=== PATIENT | male | born 1960 | race Caucasian/White ===

== ENCOUNTER 2016-12-06 19:17 | Inpatient (IN) | payer OTHER ==
[~2016-12-06] VITALS: Ht 177.8 cm; Wt 104.1 kg
[~2016-12-06 19:17] MED LIST: AMLO10TA2 PO; ASPI-630 PO; ATOR10TA60 PO; ATOR20TA PO; HYDR-2758 PO; LINE600T PO; MULT-245 PO; MULT-246 PO; OMEG1CAP27 PO; OMEG300C PO; OMEP20CA9 PO; PANT40TA3 PO; POTA20TA12 PO; POTA20TA82 PO; SILD50TA PO; VALS1TAB18 PO; VALS1TAB22 PO
[2016-12-06] MEDS ORDERED: KETOROLAC TROMETHAMINE 30 MG/ML INJ. IV ONE (21:30)
[2016-12-06 21:42] LABS: BASO # 0.1 x10^3/uL (0.0-0.2); BASO % 0 % (0-3); EOS % 0 % (0-3); HEMATOCRIT 44.8 % (39.0-53.0); HEMOGLOBIN 14.8 g/dL (13.0-17.5); LYMPH # 0.7 x10^3/uL (1.0-4.8); LYMPH % 4 % (24-48); MEAN CORPUSCULAR HEMOGLOBIN 30 pg (25-35); MEAN CORPUSCULAR HGB CONC 33 g/dL (31-37); MEAN CORPUSCULAR VOLUME 89 fL (79-100); MONO % 4 % (0-9); NEUT % 91 % (31-73); PLATELET COUNT 194 x10^3/uL (140-400); RED BLOOD COUNT 5.03 x10^6/uL (4.30-5.70); RED CELL DISTRIBUTION WIDTH 14.1 % (11.5-14.5); WHITE BLOOD COUNT 20.3 x10^3/uL (4.0-11.0)
[2016-12-06] MEDS ORDERED: VANCOMYCIN 1.5 GM in IV NORMAL SALINE 500ML BAG 500 ML IV ONE (21:45)
[2016-12-06 21:48] LABS: CALCIUM 8.8 mg/dL (8.5-10.1); CREATININE 1.1 mg/dL (0.7-1.3); GFR 69.5; POTASSIUM 3.1 mmol/L (3.5-5.1)
[2016-12-06 22:02] LABS: ALBUMIN 3.7 g/dL (3.4-5.0); ALBUMIN/GLOBULIN RATIO 0.9 (1.0-1.7); C-REACTIVE PROTEIN 110.9 mg/L (0-3.3); TOTAL BILIRUBIN 0.8 mg/dL (0.2-1.0); TOTAL PROTEIN 7.7 g/dL (6.4-8.2)
[2016-12-06 22:22] LABS: PLT ESTIMATE ADEQUATE (ADEQUATE)
[2016-12-06 23:15] VITALS: BP 127/69
[2016-12-06] MEDS: IV NORMAL SALINE 1000ML BAG 1,000 ML IV SCH (23:45)
[2016-12-06] MEDS ORDERED: ONDANSETRON PF 4 MG/2 ML VIAL. IV PRN (23:45)
[2016-12-06] MEDS ORDERED: MORPHINE SULFATE 4 MG/ML DISP.SYRIN. IV PRN (23:45)
--- NOTE | 2016-12-06 23:57 | PHYS DOC ---
Past Medical History Past Medical History: High Cholesterol, Hypertension, MRSA Past Surgical History: No Surgical History Alcohol Use: None Drug Use: None Adult General Chief Complaint Chief Complaint: FEVER HPI HPI Patient is a 56 year old male with history of recurrent cellulitis who presents with fever, myalgias, and chills starting earlier this morning with rash and right lower extremity developing later this afternoon. Patient is taken ibuprofen earlier today with limited improvement. Patient has had multiple hospital admissions the past 3 years for cellulitis. He is not diabetic. He denies any injury or trauma to the area. No history of DVT or PE. No other medical complaints. Review of Systems Review of Systems ROS as per HPI. Current Medications Current Medications Current Medications Medications (Trade) Dose Ordered Sig/Bridgette Start Time Stop Time Status Last Admin Dose Admin Ketorolac Tromethamine (Toradol) 30 mg 1X ONCE 12/06/16 21:30 12/06/16 21:31 DC 12/06/16 21:40 30 MG Allergies Allergies Allergies Coded Allergies Type Severity Reaction Last Updated Verified No Known Drug Allergies 10/10/15 No Physical Exam Physical Exam Constitutional: Well developed, well nourished, no acute distress, non-toxic appearance. [] HENT: Normocephalic, atraumatic, bilateral external ears normal, oropharynx moist, no oral exudates, nose normal. [] Eyes: PERRLA, EOMI, conjunctiva normal, no discharge. [] Neck: Normal range of motion, no tenderness, supple, no stridor. [] Cardiovascular: Tachycardic. [] Lungs & Thorax: Bilateral breath sounds clear to auscultation [] Abdomen: Bowel sounds normal, soft, no tenderness, no masses, no pulsatile masses. [] Skin: large patch cellulitis right anterior lower extremity, mild induration, no streaking, weeping her tissue sloughing.[] Back: No tenderness, no CVA tenderness. [] Extremities: No tenderness, no cyanosis, no clubbing, ROM intact, no edema. [] Neurologic: Alert and oriented X 3, normal motor function, normal sensory function, no focal deficits noted. [] Psychologic: Affect normal, judgement normal, mood normal. [] Current Patient Data Vital Signs Vital Signs Date Time Temp Pulse Resp B/P (MAP) Pulse Ox O2 Delivery O2 Flow Rate FiO2 8/29/17 19:35 100.4 87 18 132/72 (92) 95 Room Air 100.4 Lab Values Laboratory Tests Test 12/06/16 20:40 White Blood Count 20.3 x10^3/uL (4.0-11.0) H Red Blood Count 5.03 x10^6/uL (4.30-5.70) Hemoglobin 14.8 g/dL (13.0-17.5) Hematocrit 44.8 % (39.0-53.0) Mean Corpuscular Volume 89 fL (79-100) Mean Corpuscular Hemoglobin 30 pg (25-35) Mean Corpuscular Hemoglobin Concent 33 g/dL (31-37) Red Cell Distribution Width 14.1 % (11.5-14.5) Platelet Count 194 x10^3/uL (140-400) Neutrophils (%) (Auto) 91 % (31-73) H Lymphocytes (%) (Auto) 4 % (24-48) L Monocytes (%) (Auto) 4 % (0-9) Eosinophils (%) (Auto) 0 % (0-3) Basophils (%) (Auto) 0 % (0-3) Neutrophils # (Auto) 18.5 x10^3uL (1.8-7.7) H Lymphocytes # (Auto) 0.7 x10^3/uL (1.0-4.8) L Monocytes # (Auto) 0.9 x10^3/uL (0.0-1.1) Eosinophils # (Auto) 0.1 x10^3/uL (0.0-0.7) Basophils # (Auto) 0.1 x10^3/uL (0.0-0.2) Segmented Neutrophils % 83 % (35-66) H Band Neutrophils % 8 % (0-9) Lymphocytes % 5 % (24-48) L Monocytes % 4 % (0-10) Platelet Estimate Adequate (ADEQUATE) Sodium Level 137 mmol/L (136-145) Potassium Level 3.1 mmol/L (3.5-5.1) L Chloride Level 101 mmol/L (98-107) Carbon Dioxide Level 24 mmol/L (21-32) Anion Gap 12 (6-14) Blood Urea Nitrogen 16 mg/dL (8-26) Creatinine 1.1 mg/dL (0.7-1.3) Estimated GFR (Cockcroft-Gault) 69.5 BUN/Creatinine Ratio 15 (6-20) Glucose Level 110 mg/dL (70-99) H Lactic Acid Level 1.4 mmol/L (0.4-2.0) Calcium Level 8.8 mg/dL (8.5-10.1) Total Bilirubin 0.8 mg/dL (0.2-1.0) Aspartate Amino Transferase (AST) 23 U/L (15-37) Alanine Aminotransferase (ALT) 35 U/L (16-63) Alkaline Phosphatase 75 U/L (46-116) C-Reactive Protein, Quantitative 110.9 mg/L (0-3.3) H Total Protein 7.7 g/dL (6.4-8.2) Albumin 3.7 g/dL (3.4-5.0) Albumin/Globulin Ratio 0.9 (1.0-1.7) L Laboratory Tests 12/06/16 20:40 Laboratory Tests 12/06/16 20:40 EKG EKG [] Radiology/Procedures Radiology/Procedures [] Course & Med Decision Making Course & Med Decision Making Pertinent Labs and Imaging studies reviewed. (See chart for details) [IV fluids antibiotics given. Vital signs stable. Will admit patient to the hospitalist service.] Dragon Disclaimer Dragon Disclaimer This electronic medical record was generated, in whole or in part, using a voice recognition dictation system. Departure Departure Impression: Primary Impression: Cellulitis Disposition: ADMITTED INPATIENT Admitting Physician: Other Condition: STABLE (Dr. Steinberg) Referrals: JOSUE NIETO (PCP) [place] DO Dec 06, 2016 23:57
[2016-12-07 03:00] VITALS: BP 105/62
[2016-12-07 04:46] LABS: BASO # 0.1 x10^3/uL (0.0-0.2); BASO % 1 % (0-3); EOS % 0 % (0-3); HEMOGLOBIN 13.5 g/dL (13.0-17.5); LYMPH # 1.1 x10^3/uL (1.0-4.8); LYMPH % 8 % (24-48); MEAN CORPUSCULAR HEMOGLOBIN 30 pg (25-35); MEAN CORPUSCULAR HGB CONC 34 g/dL (31-37); MEAN CORPUSCULAR VOLUME 89 fL (79-100); MONO % 7 % (0-9); NEUT % 84 % (31-73); PLATELET COUNT 154 x10^3/uL (140-400); RED BLOOD COUNT 4.49 x10^6/uL (4.30-5.70); RED CELL DISTRIBUTION WIDTH 14.4 % (11.5-14.5); WHITE BLOOD COUNT 12.9 x10^3/uL (4.0-11.0)
[2016-12-07 05:01] LABS: CALCIUM 8.3 mg/dL (8.5-10.1); GFR 77.6
[2016-12-07 05:40] LABS: POTASSIUM 2.9 mmol/L (3.5-5.1)
[2016-12-07] MEDS ORDERED: POTASSIUM CHLORIDE 20 MEQ TABLET.ER. PO ONE ×2 (06:00→08:00)
[2016-12-07 07:43] VITALS: BP 118/64
[2016-12-07] MEDS ORDERED: ONDANSETRON PF 4 MG/2 ML VIAL. IV PRN (08:15)
[2016-12-07] MEDS ORDERED: MORPHINE SULFATE 2 MG/ML DISP.SYRIN. IV PRN (08:15)
[2016-12-07] MEDS ORDERED: ACETAMINOPHEN 325 MG TABLET. PO PRN (08:15)
[2016-12-07] MEDS ORDERED: hydrALAZINE 20 MG/ML VIAL. IVP PRN (08:15)
[2016-12-07] MEDS ORDERED: traMADol 50 MG TABLET PO PRN (08:15)
[2016-12-07] MEDS ORDERED: DOCUSATE SODIUM 100 MG CAPSULE. PO PRN (08:15)
[2016-12-07] MEDS ORDERED: TAMS0.4C2 PO (08:49)
[2016-12-07] MEDS: IV NORMAL SALINE 1000ML BAG 1,000 ML IV SCH ×2 (09:27→17:58)
[2016-12-07 10:48] VITALS: BP 118/71
--- NOTE | 2016-12-07 11:11 | PDOC ---
Infectious Disease Note Vital Sign Vital Signs Vital Signs Date Time Temp Pulse Resp B/P (MAP) Pulse Ox O2 Delivery O2 Flow Rate FiO2 12/07/16 10:48 98.1 70 19 118/71 (87) 94 Room Air 98.1 Labs Lab Laboratory Tests Test 12/06/16 20:40 12/07/16 04:00 White Blood Count 20.3 x10^3/uL (4.0-11.0) 12.9 x10^3/uL (4.0-11.0) Red Blood Count 5.03 x10^6/uL (4.30-5.70) 4.49 x10^6/uL (4.30-5.70) Hemoglobin 14.8 g/dL (13.0-17.5) 13.5 g/dL (13.0-17.5) Hematocrit 44.8 % (39.0-53.0) 40.0 % (39.0-53.0) Mean Corpuscular Volume 89 fL (79-100) 89 fL (79-100) Mean Corpuscular Hemoglobin 30 pg (25-35) 30 pg (25-35) Mean Corpuscular Hemoglobin Concent 33 g/dL (31-37) 34 g/dL (31-37) Red Cell Distribution Width 14.1 % (11.5-14.5) 14.4 % (11.5-14.5) Platelet Count 194 x10^3/uL (140-400) 154 x10^3/uL (140-400) Neutrophils (%) (Auto) 91 % (31-73) 84 % (31-73) Lymphocytes (%) (Auto) 4 % (24-48) 8 % (24-48) Monocytes (%) (Auto) 4 % (0-9) 7 % (0-9) Eosinophils (%) (Auto) 0 % (0-3) 0 % (0-3) Basophils (%) (Auto) 0 % (0-3) 1 % (0-3) Neutrophils # (Auto) 18.5 x10^3uL (1.8-7.7) 10.9 x10^3uL (1.8-7.7) Lymphocytes # (Auto) 0.7 x10^3/uL (1.0-4.8) 1.1 x10^3/uL (1.0-4.8) Monocytes # (Auto) 0.9 x10^3/uL (0.0-1.1) 0.9 x10^3/uL (0.0-1.1) Eosinophils # (Auto) 0.1 x10^3/uL (0.0-0.7) 0.0 x10^3/uL (0.0-0.7) Basophils # (Auto) 0.1 x10^3/uL (0.0-0.2) 0.1 x10^3/uL (0.0-0.2) Segmented Neutrophils % 83 % (35-66) Band Neutrophils % 8 % (0-9) Lymphocytes % 5 % (24-48) Monocytes % 4 % (0-10) Platelet Estimate Adequate (ADEQUATE) Sodium Level 137 mmol/L (136-145) 140 mmol/L (136-145) Potassium Level 3.1 mmol/L (3.5-5.1) 2.9 mmol/L (3.5-5.1) Chloride Level 101 mmol/L (98-107) 104 mmol/L (98-107) Carbon Dioxide Level 24 mmol/L (21-32) 25 mmol/L (21-32) Anion Gap 12 (6-14) 11 (6-14) Blood Urea Nitrogen 16 mg/dL (8-26) 15 mg/dL (8-26) Creatinine 1.1 mg/dL (0.7-1.3) 1.0 mg/dL (0.7-1.3) Estimated GFR (Cockcroft-Gault) 69.5 77.6 BUN/Creatinine Ratio 15 (6-20) Glucose Level 110 mg/dL (70-99) 114 mg/dL (70-99) Lactic Acid Level 1.4 mmol/L (0.4-2.0) Calcium Level 8.8 mg/dL (8.5-10.1) 8.3 mg/dL (8.5-10.1) Total Bilirubin 0.8 mg/dL (0.2-1.0) Aspartate Amino Transf (AST/SGOT) 23 U/L (15-37) Alanine Aminotransferase (ALT/SGPT) 35 U/L (16-63) Alkaline Phosphatase 75 U/L (46-116) C-Reactive Protein, Quantitative 110.9 mg/L (0-3.3) Total Protein 7.7 g/dL (6.4-8.2) Albumin 3.7 g/dL (3.4-5.0) Albumin/Globulin Ratio 0.9 (1.0-1.7) Objective Assessment Fever Leukocytosis RLE cellulitis -rapid onset H/o MRSA Plan Plan of Care D/c Vanc Dose cefazolin F/u labs and cults Elevation Thank you # [phone] JENNIFER MCKEON MD Dec 07, 2016 11:11
[2016-12-07] MEDS ORDERED: SILDENAFIL CITRATE 20 MG PO PRN (12:45)
[2016-12-07] MEDS ORDERED: HYDROcodone/APAP 5/325MG 1 TAB TABLET PO PRN (12:45)
[2016-12-07] MEDS: ENOXAPARIN 40 MG/0.4 ML SYRINGE. SQ SCH (13:54)
[2016-12-07] MEDS ORDERED: hydroCHLOROthiazide 12.5 MG CAPSULE PO SCH (14:00)
[2016-12-07 14:46] VITALS: BP 123/71
--- NOTE | 2016-12-07 15:38 | PDOC1 ---
History and Physical Date of Admission Date of Admission 12/07/16 Identification/Chief Complaint Chief Complaint right leg redness Problems: Source Source: Chart review, Patient History of Present Illness History of Present Illness HPI Patient is a 56 year old male with history of recurrent cellulitis for 1 day. Pt had h/o right leg cellulitis, last time was one year ago, also had h/o MRSA no details tho. Pt said right leg started to became red, yesterday morning, not much pain, mild swelling, with fever, 102. otherwise no chills, cough, sob, N/V. Patient has had multiple hospital admissions the past 3 years for cellulitis. He is not diabetic. He denies any injury or trauma to the area. No history of DVT or PE. chronic low K. Past Medical History Cardiovascular: HTN Past Surgical History Past Surgical History: No pertinent history Family History Family History: Hypertension Social History Smoke: No ALCOHOL: none Drugs: None Current Problem List Problem List Problems Medical Problems: (1) Cellulitis Status: Acute Current Medications Current Medications Current Medications Medications (Trade) Dose Ordered Sig/Bridgette Start Time Stop Time Status Last Admin Dose Admin Acetaminophen (Tylenol) 650 mg PRN Q6HRS PRN 12/07/16 08:15 12/07/16 08:46 650 MG Acetaminophen/ Hydrocodone Bitart (Lortab 5/325) 1 tab PRN Q4HRS PRN 12/07/16 12:45 Aspirin (Children'S Aspirin) 81 mg HS 12/07/16 21:00 Atorvastatin Calcium (Lipitor) 10 mg HS 12/07/16 21:00 Cefazolin Sodium 2 gm/Sodium Chloride 50 ml @ 100 mls/hr Q8H 12/07/16 11:00 12/07/16 12:44 100 MLS/HR Docusate Sodium (Colace) 100 mg PRN DAILY PRN 12/07/16 08:15 Enoxaparin Sodium (Lovenox 40mg Syringe) 40 mg Q24H 12/07/16 14:00 12/07/16 13:54 40 MG Fish Oil (Fish Oil) 1,000 mg BID 12/07/16 21:00 Hydralazine HCl (Apresoline) 10 mg PRN Q4HRS PRN 12/07/16 08:15 Hydrochlorothiazide (Microzide) 12.5 mg DAILY 12/07/16 14:00 12/07/16 14:00 DC Ketorolac Tromethamine (Toradol) 30 mg 1X ONCE 12/06/16 21:30 12/06/16 21:31 DC 12/06/16 21:40 30 MG Losartan Potassium (Cozaar) 100 mg QHS 12/07/16 21:00 Morphine Sulfate 2 mg PRN Q2HR PRN 12/07/16 08:15 Non-Formulary Medication 20 mg PRN PRN 12/07/16 12:45 UNV Ondansetron HCl (Zofran) 4 mg PRN Q6HRS PRN 12/07/16 08:15 Pantoprazole Sodium (Protonix) 40 mg DAILYAC 12/08/16 07:30 Potassium Chloride (Klor-Con) 40 meq BIDWMEALS 12/07/16 17:00 Sodium Chloride 1,000 ml @ 125 mls/hr Q8H 12/06/16 23:45 12/07/16 23:44 12/07/16 09:27 125 MLS/HR Tramadol HCl (Ultram) 50 mg PRN Q6HRS PRN 12/07/16 08:15 Vancomycin HCl 1.5 gm/Sodium Chloride 500 ml @ 250 mls/hr 1X ONCE 12/06/16 21:45 12/06/16 23:44 DC 12/06/16 21:40 250 MLS/HR Allergies Allergies Allergies Coded Allergies Type Severity Reaction Last Updated Verified No Known Drug Allergies 10/10/15 No ROS Review of System CONSTITUTIONAL: No fever or chills EYES: No recent changes SKIN: No rash or itching CARDIOVASCULAR: No chest pain, syncope, palpitations, or edema RESPIRATORY: No SOB or cough GASTROINTESTINAL: No nausea, vomiting or abdominal pain NEUROLOGICAL: No headaches or weakness ENDOCRINE: No cold or heat intolerance GENITOURINARY: No urgency or frequency of urination MUSCULOSKELETAL: No back pain or joint pain LYMPHATICS: No enlarged lymph nodes PSYCHIATRIC: No anxiety or depression Physical Exam Physical Exam GEN.: No apparent distress. Alert and oriented. HEENT: Head is normocephalic, atraumatic NECK: Supple. LUNGS: Clear to auscultation. HEART: RRR, S1, S2 present. Peripheral pulses intact ABDOMEN: Soft, nontender. Positive bowel sounds. EXTREMITIES: Without any cyanosis. NEUROLOGIC: Normal speech, normal tone PSYCHIATRIC: Normal affect, normal mood. SKIN: right leg erythematous, mild swelling , mild tenderness Vitals Vitals Vital Signs Date Time Temp Pulse Resp B/P (MAP) Pulse Ox O2 Delivery O2 Flow Rate FiO2 12/07/16 14:46 98.7 70 20 123/71 (88) 96 Room Air 98.7 Labs Labs Laboratory Tests Test 12/06/16 20:40 12/07/16 04:00 White Blood Count 20.3 x10^3/uL (4.0-11.0) 12.9 x10^3/uL (4.0-11.0) Red Blood Count 5.03 x10^6/uL (4.30-5.70) 4.49 x10^6/uL (4.30-5.70) Hemoglobin 14.8 g/dL (13.0-17.5) 13.5 g/dL (13.0-17.5) Hematocrit 44.8 % (39.0-53.0) 40.0 % (39.0-53.0) Mean Corpuscular Volume 89 fL (79-100) 89 fL (79-100) Mean Corpuscular Hemoglobin 30 pg (25-35) 30 pg (25-35) Mean Corpuscular Hemoglobin Concent 33 g/dL (31-37) 34 g/dL (31-37) Red Cell Distribution Width 14.1 % (11.5-14.5) 14.4 % (11.5-14.5) Platelet Count 194 x10^3/uL (140-400) 154 x10^3/uL (140-400) Neutrophils (%) (Auto) 91 % (31-73) 84 % (31-73) Lymphocytes (%) (Auto) 4 % (24-48) 8 % (24-48) Monocytes (%) (Auto) 4 % (0-9) 7 % (0-9) Eosinophils (%) (Auto) 0 % (0-3) 0 % (0-3) Basophils (%) (Auto) 0 % (0-3) 1 % (0-3) Neutrophils # (Auto) 18.5 x10^3uL (1.8-7.7) 10.9 x10^3uL (1.8-7.7) Lymphocytes # (Auto) 0.7 x10^3/uL (1.0-4.8) 1.1 x10^3/uL (1.0-4.8) Monocytes # (Auto) 0.9 x10^3/uL (0.0-1.1) 0.9 x10^3/uL (0.0-1.1) Eosinophils # (Auto) 0.1 x10^3/uL (0.0-0.7) 0.0 x10^3/uL (0.0-0.7) Basophils # (Auto) 0.1 x10^3/uL (0.0-0.2) 0.1 x10^3/uL (0.0-0.2) Segmented Neutrophils % 83 % (35-66) Band Neutrophils % 8 % (0-9) Lymphocytes % 5 % (24-48) Monocytes % 4 % (0-10) Platelet Estimate Adequate (ADEQUATE) Sodium Level 137 mmol/L (136-145) 140 mmol/L (136-145) Potassium Level 3.1 mmol/L (3.5-5.1) 2.9 mmol/L (3.5-5.1) Chloride Level 101 mmol/L (98-107) 104 mmol/L (98-107) Carbon Dioxide Level 24 mmol/L (21-32) 25 mmol/L (21-32) Anion Gap 12 (6-14) 11 (6-14) Blood Urea Nitrogen 16 mg/dL (8-26) 15 mg/dL (8-26) Creatinine 1.1 mg/dL (0.7-1.3) 1.0 mg/dL (0.7-1.3) Estimated GFR (Cockcroft-Gault) 69.5 77.6 BUN/Creatinine Ratio 15 (6-20) Glucose Level 110 mg/dL (70-99) 114 mg/dL (70-99) Lactic Acid Level 1.4 mmol/L (0.4-2.0) Calcium Level 8.8 mg/dL (8.5-10.1) 8.3 mg/dL (8.5-10.1) Total Bilirubin 0.8 mg/dL (0.2-1.0) Aspartate Amino Transf (AST/SGOT) 23 U/L (15-37) Alanine Aminotransferase (ALT/SGPT) 35 U/L (16-63) Alkaline Phosphatase 75 U/L (46-116) C-Reactive Protein, Quantitative 110.9 mg/L (0-3.3) Total Protein 7.7 g/dL (6.4-8.2) Albumin 3.7 g/dL (3.4-5.0) Albumin/Globulin Ratio 0.9 (1.0-1.7) Magnesium Level 1.9 mg/dL (1.8-2.4) Laboratory Tests Test 12/06/16 20:40 12/07/16 04:00 White Blood Count 20.3 x10^3/uL (4.0-11.0) 12.9 x10^3/uL (4.0-11.0) Red Blood Count 5.03 x10^6/uL (4.30-5.70) 4.49 x10^6/uL (4.30-5.70) Hemoglobin 14.8 g/dL (13.0-17.5) 13.5 g/dL (13.0-17.5) Hematocrit 44.8 % (39.0-53.0) 40.0 % (39.0-53.0) Mean Corpuscular Volume 89 fL (79-100) 89 fL (79-100) Mean Corpuscular Hemoglobin 30 pg (25-35) 30 pg (25-35) Mean Corpuscular Hemoglobin Concent 33 g/dL (31-37) 34 g/dL (31-37) Red Cell Distribution Width 14.1 % (11.5-14.5) 14.4 % (11.5-14.5) Platelet Count 194 x10^3/uL (140-400) 154 x10^3/uL (140-400) Neutrophils (%) (Auto) 91 % (31-73) 84 % (31-73) Lymphocytes (%) (Auto) 4 % (24-48) 8 % (24-48) Monocytes (%) (Auto) 4 % (0-9) 7 % (0-9) Eosinophils (%) (Auto) 0 % (0-3) 0 % (0-3) Basophils (%) (Auto) 0 % (0-3) 1 % (0-3) Neutrophils # (Auto) 18.5 x10^3uL (1.8-7.7) 10.9 x10^3uL (1.8-7.7) Lymphocytes # (Auto) 0.7 x10^3/uL (1.0-4.8) 1.1 x10^3/uL (1.0-4.8) Monocytes # (Auto) 0.9 x10^3/uL (0.0-1.1) 0.9 x10^3/uL (0.0-1.1) Eosinophils # (Auto) 0.1 x10^3/uL (0.0-0.7) 0.0 x10^3/uL (0.0-0.7) Basophils # (Auto) 0.1 x10^3/uL (0.0-0.2) 0.1 x10^3/uL (0.0-0.2) Segmented Neutrophils % 83 % (35-66) Band Neutrophils % 8 % (0-9) Lymphocytes % 5 % (24-48) Monocytes % 4 % (0-10) Platelet Estimate Adequate (ADEQUATE) Sodium Level 137 mmol/L (136-145) 140 mmol/L (136-145) Potassium Level 3.1 mmol/L (3.5-5.1) 2.9 mmol/L (3.5-5.1) Chloride Level 101 mmol/L (98-107) 104 mmol/L (98-107) Carbon Dioxide Level 24 mmol/L (21-32) 25 mmol/L (21-32) Anion Gap 12 (6-14) 11 (6-14) Blood Urea Nitrogen 16 mg/dL (8-26) 15 mg/dL (8-26) Creatinine 1.1 mg/dL (0.7-1.3) 1.0 mg/dL (0.7-1.3) Estimated GFR (Cockcroft-Gault) 69.5 77.6 BUN/Creatinine Ratio 15 (6-20) Glucose Level 110 mg/dL (70-99) 114 mg/dL (70-99) Lactic Acid Level 1.4 mmol/L (0.4-2.0) Calcium Level 8.8 mg/dL (8.5-10.1) 8.3 mg/dL (8.5-10.1) Total Bilirubin 0.8 mg/dL (0.2-1.0) Aspartate Amino Transf (AST/SGOT) 23 U/L (15-37) Alanine Aminotransferase (ALT/SGPT) 35 U/L (16-63) Alkaline Phosphatase 75 U/L (46-116) C-Reactive Protein, Quantitative 110.9 mg/L (0-3.3) Total Protein 7.7 g/dL (6.4-8.2) Albumin 3.7 g/dL (3.4-5.0) Albumin/Globulin Ratio 0.9 (1.0-1.7) Magnesium Level 1.9 mg/dL (1.8-2.4) VTE Prophylaxis Ordered VTE Prophylaxis Devices: No VTE Pharmacological Prophylaxi: Yes Assessment/Plan Assessment/Plan recurrent right leg cellulitis h/o 3 previous right leg cellulitis h/o MRSA HTN HLD MOrbid obesity hypokalemia sepsis with cellulitis plan: cont home meds, dc hctz, cont po KCL fu with id on cefazolin dvt ppx replete KELY GUERRA MD Dec 07, 2016 15:38
[2016-12-07] MEDS: POTASSIUM CHLORIDE 20 MEQ TABLET.ER. PO SCH (17:54)
[2016-12-07 19:49] VITALS: BP 129/78
[2016-12-07] MEDS: OMEGA-3 FATTY ACIDS/FISH OIL 1,000 MG CAPSULE. PO SCH (20:18)
[2016-12-07] MEDS: ASPIRIN CHEWABLE 81 MG TABLET. PO SCH (20:18)
[2016-12-07] MEDS: ATORVASTATIN CALCIUM 10 MG TABLET. PO SCH (20:18)
[2016-12-07] MEDS: LOSARTAN POTASSIUM 50 MG TABLET. PO SCH (20:18)
[2016-12-07 23:39] VITALS: BP 131/79
[2016-12-08 05:25] LABS: BASO # 0.1 x10^3/uL (0.0-0.2); BASO % 1 % (0-3); EOS % 4 % (0-3); HEMATOCRIT 40.5 % (39.0-53.0); HEMOGLOBIN 13.9 g/dL (13.0-17.5); LYMPH # 1.9 x10^3/uL (1.0-4.8); LYMPH % 25 % (24-48); MEAN CORPUSCULAR HEMOGLOBIN 30 pg (25-35); MEAN CORPUSCULAR HGB CONC 34 g/dL (31-37); MEAN CORPUSCULAR VOLUME 88 fL (79-100); MONO % 11 % (0-9); NEUT % 59 % (31-73); PLATELET COUNT 148 x10^3/uL (140-400); RED BLOOD COUNT 4.59 x10^6/uL (4.30-5.70); RED CELL DISTRIBUTION WIDTH 14.3 % (11.5-14.5); WHITE BLOOD COUNT 7.5 x10^3/uL (4.0-11.0)
[2016-12-08 07:00] VITALS: BP 139/90
[2016-12-08] MEDS: OMEGA-3 FATTY ACIDS/FISH OIL 1,000 MG CAPSULE. PO SCH ×2 (08:19→22:03)
[2016-12-08] MEDS: PANTOPRAZOLE 40 MG TABLET.DR. PO SCH (08:19)
[2016-12-08] MEDS: POTASSIUM CHLORIDE 20 MEQ TABLET.ER. PO SCH ×2 (08:19→17:30)
[2016-12-08 09:10] LABS: CALCIUM 8.1 mg/dL (8.5-10.1); CREATININE 0.8 mg/dL (0.7-1.3); GFR 100.4
--- NOTE | 2016-12-08 09:23 | CONS ---
DATE OF CONSULTATION: 12/07/2016 LOCATION: The patient's room is 673. REQUESTING PHYSICIAN: Dr. Deleon. REASON FOR CONSULTATION: Cellulitis. HISTORY OF PRESENT ILLNESS: The patient is a pleasant 57-year-old gentleman with a distant history of MRSA and has had previous lower extremity cellulitis. He states he awakened about 1:00 in the morning of Monday with sudden onset of chills and shakes. He did run low grade temps between 99 to 100 and took some ibuprofen. He does have mild headache, had some nausea, but no vomiting. Denies any known trauma, bites or insect bites. No change in vision, no sore throat, no chest pain, no diarrhea, no dysuria, frequency or urgency, but he presented to [facility], had a temperature of 100.4 on arrival. T-max has been 100.6. White blood cell count was elevated at 20.3. He was given a dose of vancomycin and admitted to the hospital. Currently, he is lying in a bed, states he is doing okay. Denies any significant pain, but does have some ____. PAST MEDICAL HISTORY: Positive for previous right lower extremity cellulitis, history of MRSA, history of hyperlipidemia, hypertension, gastroesophageal reflux disease. REVIEW OF SYSTEMS: Otherwise negative except for mentioned above. ALLERGIES: No known drug allergies. SOCIAL HISTORY: He is , lives at home. He is employed. No tobacco. FAMILY HISTORY: Noncontributory. CURRENT MEDICATIONS: He did receive a dose of vancomycin, also is receiving p.r.n. Tylenol, Colace, hydralazine. Alternative other meds are available and have been reviewed in the chart. PHYSICAL EXAMINATION: VITAL SIGNS: T-max 100.6, currently 98.1, pulse 70, respirations 19, blood pressure 118/71 and satting 94% on room air. CONSTITUTIONAL: He is very pleasant. He is cooperative. He is in no acute distress. HEENT: Pupils are equal and reactive with normal conjunctivae. Oral cavity, pharynx is clear. NECK: Supple, no JVD. LUNGS: Clear to auscultation bilaterally. HEART: S1, S2, without murmur. ABDOMEN: Slightly obese, soft, nontender, nondistended, positive bowel sounds. EXTREMITIES: Without clubbing, cyanosis. He does have some mild right lower extremity trace to 1+ edema and some erythema from the base of his leg to just below his knee. There are no gross signs of any trauma, no bleeding or fluctuance. SKIN: Otherwise warm to touch without signs of rash. NEUROLOGIC: He is nonfocal, moves all extremities. PSYCHIATRIC: Affect is pleasant. LABORATORY DATA: White count 12.9, hemoglobin 13.5, platelets of 154 with neutrophils of 84%. Creatinine of 1. Glucose of 114. Normal liver function study tests on arrival. There are no radiological studies. IMPRESSION: 1. Fever. 2. Leukocytosis. 3. Right lower extremity with a rapid onset. 4. History of methicillin-resistant Staphylococcus aureus. RECOMMENDATIONS: We will discontinue further vancomycin. We will dose cefazolin. This is most likely a strep given the recurrent nature and the rapid onset. Follow up labs and cultures. Elevation. Thank you for allowing me to participate in the patient's care. If you have any questions, please do not hesitate to contact me. JENNIFER MCKEON MD DR: FEMI/killian JOB#: [id number] / [id number]
[2016-12-08 11:00] VITALS: BP 149/91
--- NOTE | 2016-12-08 11:03 | PDOC ---
Infectious Disease Note Subjective Subjective Better overall but leg more red today and some thigh discomfort ROS ROS GEN: Denies fevers, chills, sweats HEENT: Denies blurred vision, sore throat CV: Denies chest pain RESP: Denies shortness of air, cough GI: Denies n/v/d NEURO: Denies confusion, dizziness MSK: Denies weakness, joint pain/swelling Vital Sign Vital Signs Vital Signs Date Time Temp Pulse Resp B/P (MAP) Pulse Ox O2 Delivery O2 Flow Rate FiO2 12/08/16 08:00 Room Air 12/08/16 07:00 98.1 64 20 139/90 (106) 98 98.1 Physical Exam PHYSICAL EXAM GENERAL: NAD, Alert HEENT: PERRL, OC/OP- clear NECK: Supple, no JVD, no LN LUNGS: Clear HEART: S1S2, no gallop, no murmur ABD: Soft, NT, no organomegaly, no rebound EXT: Trce edema, mild to mod erythema and warmth, no cyanosis FLAKER TENDER: Alert, oriented x 3, no focal neurologic deficit SKIN: No rash IV: ok Labs Lab Laboratory Tests Test 12/08/16 04:00 12/08/16 08:05 White Blood Count 7.5 x10^3/uL (4.0-11.0) Red Blood Count 4.59 x10^6/uL (4.30-5.70) Hemoglobin 13.9 g/dL (13.0-17.5) Hematocrit 40.5 % (39.0-53.0) Mean Corpuscular Volume 88 fL (79-100) Mean Corpuscular Hemoglobin 30 pg (25-35) Mean Corpuscular Hemoglobin Concent 34 g/dL (31-37) Red Cell Distribution Width 14.3 % (11.5-14.5) Platelet Count 148 x10^3/uL (140-400) Neutrophils (%) (Auto) 59 % (31-73) Lymphocytes (%) (Auto) 25 % (24-48) Monocytes (%) (Auto) 11 % (0-9) Eosinophils (%) (Auto) 4 % (0-3) Basophils (%) (Auto) 1 % (0-3) Neutrophils # (Auto) 4.4 x10^3uL (1.8-7.7) Lymphocytes # (Auto) 1.9 x10^3/uL (1.0-4.8) Monocytes # (Auto) 0.9 x10^3/uL (0.0-1.1) Eosinophils # (Auto) 0.3 x10^3/uL (0.0-0.7) Basophils # (Auto) 0.1 x10^3/uL (0.0-0.2) Sodium Level 140 mmol/L (136-145) Potassium Level 3.0 mmol/L (3.5-5.1) Chloride Level 104 mmol/L (98-107) Carbon Dioxide Level 25 mmol/L (21-32) Anion Gap 11 (6-14) Blood Urea Nitrogen 8 mg/dL (8-26) Creatinine 0.8 mg/dL (0.7-1.3) Estimated GFR (Cockcroft-Gault) 100.4 Glucose Level 96 mg/dL (70-99) Calcium Level 8.1 mg/dL (8.5-10.1) Objective Assessment Fever - better Leukocytosis - better RLE cellulitis -rapid onset H/o MRSA Plan Plan of Care Cont cefazolin Dose Clind for a few doses F/u labs and cults Elevation JENNIFER MCKEON MD Dec 08, 2016 11:03
[2016-12-08] MEDS: CLINDAMYCIN HCL 150 MG CAPSULE. PO SCH ×2 (12:35→22:01)
[2016-12-08] MEDS: ENOXAPARIN 40 MG/0.4 ML SYRINGE. SQ SCH (12:35)
--- NOTE | 2016-12-08 14:09 | PDOC ---
PROGRESS NOTES Chief Complaint Chief Complaint h/o 3 previous right leg cellulitis h/o MRSA HTN HLD MOrbid obesity hypokalemia sepsis with cellulitis plan: cont home meds, dc hctz, cont po KCL fu with id on cefazolin, clinda added by ID today dvt ppx replete K elevate leg History of Present Illness History of Present Illness right leg redness better, but new right thigh redness ROS: no fever, chills, sob or chest pain. WBC normal K still low Vitals Vitals Vital Signs Date Time Temp Pulse Resp B/P (MAP) Pulse Ox O2 Delivery O2 Flow Rate FiO2 12/08/16 11:00 98.6 59 18 149/91 (110) 96 Room Air 98.6 Physical Exam Physical Exam right leg redness better, but right thigh new redness General: Alert, Oriented X3, Cooperative Heart: Regular rate, Normal S1, Normal S2 Lungs: Clear Abdomen: Normal bowel sounds, Soft Extremities: No clubbing, No cyanosis Skin: No breakdown Labs LABS Laboratory Tests Test 12/08/16 04:00 12/08/16 08:05 White Blood Count 7.5 x10^3/uL (4.0-11.0) Red Blood Count 4.59 x10^6/uL (4.30-5.70) Hemoglobin 13.9 g/dL (13.0-17.5) Hematocrit 40.5 % (39.0-53.0) Mean Corpuscular Volume 88 fL (79-100) Mean Corpuscular Hemoglobin 30 pg (25-35) Mean Corpuscular Hemoglobin Concent 34 g/dL (31-37) Red Cell Distribution Width 14.3 % (11.5-14.5) Platelet Count 148 x10^3/uL (140-400) Neutrophils (%) (Auto) 59 % (31-73) Lymphocytes (%) (Auto) 25 % (24-48) Monocytes (%) (Auto) 11 % (0-9) Eosinophils (%) (Auto) 4 % (0-3) Basophils (%) (Auto) 1 % (0-3) Neutrophils # (Auto) 4.4 x10^3uL (1.8-7.7) Lymphocytes # (Auto) 1.9 x10^3/uL (1.0-4.8) Monocytes # (Auto) 0.9 x10^3/uL (0.0-1.1) Eosinophils # (Auto) 0.3 x10^3/uL (0.0-0.7) Basophils # (Auto) 0.1 x10^3/uL (0.0-0.2) Sodium Level 140 mmol/L (136-145) Potassium Level 3.0 mmol/L (3.5-5.1) Chloride Level 104 mmol/L (98-107) Carbon Dioxide Level 25 mmol/L (21-32) Anion Gap 11 (6-14) Blood Urea Nitrogen 8 mg/dL (8-26) Creatinine 0.8 mg/dL (0.7-1.3) Estimated GFR (Cockcroft-Gault) 100.4 Glucose Level 96 mg/dL (70-99) Calcium Level 8.1 mg/dL (8.5-10.1) Assessment and Plan Assessmemt and Plan Problems Medical Problems: (1) Cellulitis Status: Acute Problems: Comment Review of Relevant I have reviewed the following items nadia (where applicable) has been applied. Labs Laboratory Tests Test 12/06/16 20:40 12/07/16 01:55 12/07/16 04:00 12/08/16 04:00 White Blood Count 20.3 x10^3/uL (4.0-11.0) 12.9 x10^3/uL (4.0-11.0) 7.5 x10^3/uL (4.0-11.0) Red Blood Count 5.03 x10^6/uL (4.30-5.70) 4.49 x10^6/uL (4.30-5.70) 4.59 x10^6/uL (4.30-5.70) Hemoglobin 14.8 g/dL (13.0-17.5) 13.5 g/dL (13.0-17.5) 13.9 g/dL (13.0-17.5) Hematocrit 44.8 % (39.0-53.0) 40.0 % (39.0-53.0) 40.5 % (39.0-53.0) Mean Corpuscular Volume 89 fL (79-100) 89 fL (79-100) 88 fL (79-100) Mean Corpuscular Hemoglobin 30 pg (25-35) 30 pg (25-35) 30 pg (25-35) Mean Corpuscular Hemoglobin Concent 33 g/dL (31-37) 34 g/dL (31-37) 34 g/dL (31-37) Red Cell Distribution Width 14.1 % (11.5-14.5) 14.4 % (11.5-14.5) 14.3 % (11.5-14.5) Platelet Count 194 x10^3/uL (140-400) 154 x10^3/uL (140-400) 148 x10^3/uL (140-400) Neutrophils (%) (Auto) 91 % (31-73) 84 % (31-73) 59 % (31-73) Lymphocytes (%) (Auto) 4 % (24-48) 8 % (24-48) 25 % (24-48) Monocytes (%) (Auto) 4 % (0-9) 7 % (0-9) 11 % (0-9) Eosinophils (%) (Auto) 0 % (0-3) 0 % (0-3) 4 % (0-3) Basophils (%) (Auto) 0 % (0-3) 1 % (0-3) 1 % (0-3) Neutrophils # (Auto) 18.5 x10^3uL (1.8-7.7) 10.9 x10^3uL (1.8-7.7) 4.4 x10^3uL (1.8-7.7) Lymphocytes # (Auto) 0.7 x10^3/uL (1.0-4.8) 1.1 x10^3/uL (1.0-4.8) 1.9 x10^3/uL (1.0-4.8) Monocytes # (Auto) 0.9 x10^3/uL (0.0-1.1) 0.9 x10^3/uL (0.0-1.1) 0.9 x10^3/uL (0.0-1.1) Eosinophils # (Auto) 0.1 x10^3/uL (0.0-0.7) 0.0 x10^3/uL (0.0-0.7) 0.3 x10^3/uL (0.0-0.7) Basophils # (Auto) 0.1 x10^3/uL (0.0-0.2) 0.1 x10^3/uL (0.0-0.2) 0.1 x10^3/uL (0.0-0.2) Segmented Neutrophils % 83 % (35-66) Band Neutrophils % 8 % (0-9) Lymphocytes % 5 % (24-48) Monocytes % 4 % (0-10) Platelet Estimate Adequate (ADEQUATE) Sodium Level 137 mmol/L (136-145) 140 mmol/L (136-145) Potassium Level 3.1 mmol/L (3.5-5.1) 2.9 mmol/L (3.5-5.1) Chloride Level 101 mmol/L (98-107) 104 mmol/L (98-107) Carbon Dioxide Level 24 mmol/L (21-32) 25 mmol/L (21-32) Anion Gap 12 (6-14) 11 (6-14) Blood Urea Nitrogen 16 mg/dL (8-26) 15 mg/dL (8-26) Creatinine 1.1 mg/dL (0.7-1.3) 1.0 mg/dL (0.7-1.3) Estimated GFR (Cockcroft-Gault) 69.5 77.6 BUN/Creatinine Ratio 15 (6-20) Glucose Level 110 mg/dL (70-99) 114 mg/dL (70-99) Lactic Acid Level 1.4 mmol/L (0.4-2.0) Calcium Level 8.8 mg/dL (8.5-10.1) 8.3 mg/dL (8.5-10.1) Total Bilirubin 0.8 mg/dL (0.2-1.0) Aspartate Amino Transf (AST/SGOT) 23 U/L (15-37) Alanine Aminotransferase (ALT/SGPT) 35 U/L (16-63) Alkaline Phosphatase 75 U/L (46-116) C-Reactive Protein, Quantitative 110.9 mg/L (0-3.3) Total Protein 7.7 g/dL (6.4-8.2) Albumin 3.7 g/dL (3.4-5.0) Albumin/Globulin Ratio 0.9 (1.0-1.7) Nasal Screen MRSA (PCR) Negative (Negative) Magnesium Level 1.9 mg/dL (1.8-2.4) Test 12/08/16 08:05 Sodium Level 140 mmol/L (136-145) Potassium Level 3.0 mmol/L (3.5-5.1) Chloride Level 104 mmol/L (98-107) Carbon Dioxide Level 25 mmol/L (21-32) Anion Gap 11 (6-14) Blood Urea Nitrogen 8 mg/dL (8-26) Creatinine 0.8 mg/dL (0.7-1.3) Estimated GFR (Cockcroft-Gault) 100.4 Glucose Level 96 mg/dL (70-99) Calcium Level 8.1 mg/dL (8.5-10.1) Laboratory Tests Test 12/08/16 04:00 12/08/16 08:05 White Blood Count 7.5 x10^3/uL (4.0-11.0) Red Blood Count 4.59 x10^6/uL (4.30-5.70) Hemoglobin 13.9 g/dL (13.0-17.5) Hematocrit 40.5 % (39.0-53.0) Mean Corpuscular Volume 88 fL (79-100) Mean Corpuscular Hemoglobin 30 pg (25-35) Mean Corpuscular Hemoglobin Concent 34 g/dL (31-37) Red Cell Distribution Width 14.3 % (11.5-14.5) Platelet Count 148 x10^3/uL (140-400) Neutrophils (%) (Auto) 59 % (31-73) Lymphocytes (%) (Auto) 25 % (24-48) Monocytes (%) (Auto) 11 % (0-9) Eosinophils (%) (Auto) 4 % (0-3) Basophils (%) (Auto) 1 % (0-3) Neutrophils # (Auto) 4.4 x10^3uL (1.8-7.7) Lymphocytes # (Auto) 1.9 x10^3/uL (1.0-4.8) Monocytes # (Auto) 0.9 x10^3/uL (0.0-1.1) Eosinophils # (Auto) 0.3 x10^3/uL (0.0-0.7) Basophils # (Auto) 0.1 x10^3/uL (0.0-0.2) Sodium Level 140 mmol/L (136-145) Potassium Level 3.0 mmol/L (3.5-5.1) Chloride Level 104 mmol/L (98-107) Carbon Dioxide Level 25 mmol/L (21-32) Anion Gap 11 (6-14) Blood Urea Nitrogen 8 mg/dL (8-26) Creatinine 0.8 mg/dL (0.7-1.3) Estimated GFR (Cockcroft-Gault) 100.4 Glucose Level 96 mg/dL (70-99) Calcium Level 8.1 mg/dL (8.5-10.1) Microbiology 12/06/16 Blood Culture - Preliminary, Resulted NO GROWTH AFTER 1 DAY Medications Current Medications Vancomycin HCl 1.5 gm/Sodium Chloride 500 ml @ 250 mls/hr 1X ONCE IV Last administered on 12/06/16 21:40; Start 12/06/16 at 21:45; Stop 12/06/16 at 23:44 ; Status DC Ketorolac Tromethamine (Toradol) 30 mg 1X ONCE IV Last administered on 21:40; Start 12/06/16 at 21:30; Stop 12/06/16 at 21:31; Status DC Ondansetron HCl (Zofran) 4 mg PRN Q8HRS PRN IV NAUSEA/VOMITING; Start 12/06/16 at 23:45; Stop 12/07/16 at 23:44; Status DC Morphine Sulfate 2 mg PRN Q2HR PRN IV PAIN; Start 12/06/16 at 23:45; Stop 12/07 at 14:35; Status DC Sodium Chloride 1,000 ml @ 125 mls/hr Q8H IV Last administered on 12/07/16 17 :58; Start 12/06/16 at 23:45; Stop 12/07/16 at 23:44; Status DC Potassium Chloride (Klor-Con) 40 meq 1X ONCE PO Last administered on 06:20; Start 12/07/16 at 06:00; Stop 12/07/16 at 06:01; Status DC Potassium Chloride (Klor-Con) 40 meq 1X ONCE PO Last administered on 08:47; Start 12/07/16 at 08:00; Stop 12/07/16 at 08:01; Status DC Acetaminophen (Tylenol) 650 mg PRN Q6HRS PRN PO FEVER Last administered on 12/07 08:46; Start 12/07/16 at 08:15 Ondansetron HCl (Zofran) 4 mg PRN Q6HRS PRN IV NAUSEA/VOMITING; Start 12/07/16 at 08:15 Morphine Sulfate 2 mg PRN Q2HR PRN IV PAIN; Start 12/07/16 at 08:15 Tramadol HCl (Ultram) 50 mg PRN Q6HRS PRN PO PAIN; Start 12/07/16 at 08:15 Hydralazine HCl (Apresoline) 10 mg PRN Q4HRS PRN IVP ELEVATED BP, SEE COMMENTS ; Start 12/07/16 at 08:15 Docusate Sodium (Colace) 100 mg PRN DAILY PRN PO CONSTIPATION; Start 12/07/16 at 08:15 Cefazolin Sodium 2 gm/Sodium Chloride 50 ml @ 100 mls/hr Q8H IV Last administered on 12/08/16 12:36; Start 12/07/16 at 11:00 Aspirin (Children'S Aspirin) 81 mg HS PO Last administered on 12/07/16 20:18; Start 12/07/16 at 21:00 Atorvastatin Calcium (Lipitor) 10 mg HS PO Last administered on 12/07/16 20:18 ; Start 12/07/16 at 21:00 Acetaminophen/ Hydrocodone Bitart (Lortab 5/325) 1 tab PRN Q4HRS PRN PO MILD PAIN; Start 12/07/16 at 12:45 Fish Oil (Fish Oil) 1,000 mg BID PO Last administered on 12/08/16 08:19; Start 12/07/16 at 21:00 Pantoprazole Sodium (Protonix) 40 mg DAILYAC PO Last administered on 12/08/16 08:19; Start 12/08/16 at 07:30 Potassium Chloride (Klor-Con) 40 meq BIDWMEALS PO Last administered on 08:19; Start 12/07/16 at 17:00 Non-Formulary Medication 20 mg PRN PRN PO ED; Start 12/07/16 at 12:45; Status UNV Losartan Potassium (Cozaar) 100 mg QHS PO Last administered on 12/07/16 20:18 ; Start 12/07/16 at 21:00 Enoxaparin Sodium (Lovenox 40mg Syringe) 40 mg Q24H SQ Last administered on 12:35; Start 12/07/16 at 14:00 Hydrochlorothiazide (Microzide) 12.5 mg DAILY PO ; Start 12/07/16 at 14:00; Stop 12/07/16 at 14:00; Status DC Clindamycin HCl (Cleocin) 300 mg TID PO Last administered on 12/08/16 12:35; Start 12/08/16 at 14:00 Active Scripts Active Hydrocodone-Apap 5-325 (Hydrocodone Bit/Acetaminophen) 1 Each Tablet 1 Tab PO PRN Q4HRS PRN Zyvox (Linezolid) 600 Mg Tablet 600 Mg PO BID 7 Days Reported Tamsulosin Hcl 0.4 Mg Cap.er.24h 1 Cap PO DAILY Fish Oil ([place]-3 Fatty Acids) 300 Mg Capsule 1,600 Mg PO BID Multi-Vitamin Daily (Multivitamin) 1 Each Tablet 1 Each PO Aspirin 81 Mg Tab.chew 1 Tab PO HS Viagra (Sildenafil Citrate) 50 Mg Tablet 20 Mg PO PRN PRN Potassium Chloride 20 Meq Tablet.er 40 Meq PO BID Omeprazole 20 Mg Capsule.dr 0.5 Cap PO DAILY Diovan Hct 320-12.5 Mg Tab (Valsartan/Hydrochlorothiazide) 1 Each Tablet 1 Tab PO HS Atorvastatin Calcium 10 Mg Tablet 1 Tab PO HS Vitals/I & O Vital Sign - Last 24 Hours 12/07/16 12/07/16 12/07/16 12/07/16 14:46 19:49 20:00 20:18 Temp 98.7 98.2 98.7 98.2 Pulse 70 69 69 Resp 20 16 B/P (MAP) 123/71 (88) 129/78 (95) 129/78 Pulse Ox 96 94 O2 Delivery Room Air Room Air Room Air 12/07/16 12/08/16 12/08/16 12/08/16 23:39 03:00 03:08 07:00 Temp 98.2 98.1 98.2 98.1 Pulse 59 60 64 Resp 16 20 B/P (MAP) 131/79 (96) 139/90 (106) Pulse Ox 95 98 O2 Delivery Room Air Room Air Room Air 12/08/16 12/08/16 08:00 11:00 Temp 98.6 98.6 Pulse 59 Resp 18 B/P (MAP) 149/91 (110) Pulse Ox 96 O2 Delivery Room Air Room Air KELY MONET MD Dec 08, 2016 14:09
[2016-12-08 15:00] VITALS: BP 140/85
[2016-12-08] MEDS ORDERED: TAMSULOSIN 0.4 MG CAP.ER.24H. PO SCH ×2 (16:00→21:00)
[2016-12-08 19:51] VITALS: BP 133/84
[2016-12-08] MEDS: ASPIRIN CHEWABLE 81 MG TABLET. PO SCH (22:01)
[2016-12-08] MEDS: LOSARTAN POTASSIUM 50 MG TABLET. PO SCH (22:02)
[2016-12-08] MEDS: ATORVASTATIN CALCIUM 10 MG TABLET. PO SCH (22:03)
[2016-12-08 23:43] VITALS: BP 119/72
[2016-12-09] MEDS: PANTOPRAZOLE 40 MG TABLET.DR. PO SCH (06:05)
[2016-12-09 07:00] VITALS: BP 134/80
[2016-12-09 08:20] LABS: BASO # 0.1 x10^3/uL (0.0-0.2); BASO % 1 % (0-3); EOS % 4 % (0-3); HEMATOCRIT 44.4 % (39.0-53.0); HEMOGLOBIN 14.8 g/dL (13.0-17.5); LYMPH # 2.5 x10^3/uL (1.0-4.8); LYMPH % 39 % (24-48); MEAN CORPUSCULAR HEMOGLOBIN 30 pg (25-35); MEAN CORPUSCULAR HGB CONC 33 g/dL (31-37); MEAN CORPUSCULAR VOLUME 89 fL (79-100); MONO % 11 % (0-9); NEUT % 45 % (31-73); PLATELET COUNT 182 x10^3/uL (140-400); RED BLOOD COUNT 5.01 x10^6/uL (4.30-5.70); RED CELL DISTRIBUTION WIDTH 14.2 % (11.5-14.5); WHITE BLOOD COUNT 6.4 x10^3/uL (4.0-11.0)
[2016-12-09 08:54] LABS: CALCIUM 8.4 mg/dL (8.5-10.1); GFR 77.6; MAGNESIUM 1.9 mg/dL (1.8-2.4); POTASSIUM 3.2 mmol/L (3.5-5.1)
[2016-12-09] MEDS: OMEGA-3 FATTY ACIDS/FISH OIL 1,000 MG CAPSULE. PO SCH (09:17)
[2016-12-09] MEDS: CLINDAMYCIN HCL 150 MG CAPSULE. PO SCH ×2 (09:17→13:37)
[2016-12-09] MEDS: POTASSIUM CHLORIDE 20 MEQ TABLET.ER. PO SCH (09:17)
[2016-12-09] MEDS: POTASSIUM CHLORIDE 10MEQ 100 ML IV SCH ×4 (09:18→13:47)
[2016-12-09 11:00] VITALS: BP_SYST 139; BP_DIAS 52; BP_DIAS 84
--- NOTE | 2016-12-09 12:46 | PDOC ---
Infectious Disease Note Subjective Subjective Hoping to go home Says leg is looking better, less red Denies pain ROS ROS GEN: Denies fevers, chills, sweats CV: Denies chest pain RESP: Denies shortness of air, cough GI: Denies n/v/d Vital Sign Vital Signs Vital Signs Date Time Temp Pulse Resp B/P (MAP) Pulse Ox O2 Delivery O2 Flow Rate FiO2 12/09/16 11:00 98.3 62 16 139/84 (102) 97 Room Air 98.3 Physical Exam PHYSICAL EXAM GENERAL: Propped up in bed, NAD LUNGS: Clear HEART: S1 and S2 ABD: Soft, NT EXT: No edema, no cyanosis CHEMICAL SUPERVISOR: Alert, oriented x 3, no focal neurologic deficit SKIN: No rash. RLE redness, fading IV: ok Labs Lab Laboratory Tests Test 12/09/16 07:45 White Blood Count 6.4 x10^3/uL (4.0-11.0) Red Blood Count 5.01 x10^6/uL (4.30-5.70) Hemoglobin 14.8 g/dL (13.0-17.5) Hematocrit 44.4 % (39.0-53.0) Mean Corpuscular Volume 89 fL (79-100) Mean Corpuscular Hemoglobin 30 pg (25-35) Mean Corpuscular Hemoglobin Concent 33 g/dL (31-37) Red Cell Distribution Width 14.2 % (11.5-14.5) Platelet Count 182 x10^3/uL (140-400) Neutrophils (%) (Auto) 45 % (31-73) Lymphocytes (%) (Auto) 39 % (24-48) Monocytes (%) (Auto) 11 % (0-9) Eosinophils (%) (Auto) 4 % (0-3) Basophils (%) (Auto) 1 % (0-3) Neutrophils # (Auto) 2.8 x10^3uL (1.8-7.7) Lymphocytes # (Auto) 2.5 x10^3/uL (1.0-4.8) Monocytes # (Auto) 0.7 x10^3/uL (0.0-1.1) Eosinophils # (Auto) 0.3 x10^3/uL (0.0-0.7) Basophils # (Auto) 0.1 x10^3/uL (0.0-0.2) Sodium Level 140 mmol/L (136-145) Potassium Level 3.2 mmol/L (3.5-5.1) Chloride Level 103 mmol/L (98-107) Carbon Dioxide Level 24 mmol/L (21-32) Anion Gap 13 (6-14) Blood Urea Nitrogen 12 mg/dL (8-26) Creatinine 1.0 mg/dL (0.7-1.3) Estimated GFR (Cockcroft-Gault) 77.6 Glucose Level 99 mg/dL (70-99) Calcium Level 8.4 mg/dL (8.5-10.1) Magnesium Level 1.9 mg/dL (1.8-2.4) Micro BLOOD CULTURE Preliminary NO GROWTH AFTER 2 DAYS Objective Assessment Fever - better Leukocytosis - better RLE cellulitis -rapid onset, looking better H/o MRSA Plan Plan of Care Cont cefazolin and clinda for now, wean to po soon. Leg elevation Attending Co-Sign The patient was seen and interviewed as well as examined at the bedside. The chart was reviewed. The case was discussed. Agree with the plan of care. FREDDY LANCASTER APRN Dec 09, 2016 12:46 HYACINTH GOLDEN MD Dec 09, 2016 15:25
[2016-12-09] MEDS: ENOXAPARIN 40 MG/0.4 ML SYRINGE. SQ SCH (13:38)
[2016-12-09 15:00] VITALS: BP 137/88
[2016-12-09] MEDS ORDERED: LOSA50TA2 PO (15:32)
--- NOTE | 2016-12-09 15:33 | PDOC3 ---
Discharge Summary [facility] Date of Admission: Dec 06, 2006 Discharge Date: Dec 09, 2016 Admitting Diagnosis h/o 3 previous right leg cellulitis h/o MRSA HTN HLD MOrbid obesity hypokalemia sepsis with cellulitis plan: cont home meds, dc hctz, cont po KCL fu with id on cefazolin, clinda added by ID today dvt ppx replete K elevate leg History of Present Illness History of Present Illness right leg redness better, but new right thigh redness ROS: no fever, chills, sob or chest pain. WBC normal K still low Vitals Vitals Vital Signs Date Time Temp Pulse Resp B/P (MAP) Pulse Ox O2 Delivery O2 Flow Rate FiO2 12/08/16 11:00 98.6 59 18 149/91 (110) 96 Room Air 98.6 Physical Exam Problems: Final Diagnosis CONSULTS ID Brief Hospital Course Patient is a 56 year old male with history of recurrent cellulitis for 1 day. Pt had h/o right leg cellulitis, last time was one year ago, also had h/o MRSA no details tho. Pt said right leg started to became red, yesterday morning, not much pain, mild swelling, with fever, 102. otherwise no chills, cough, sob, N/V. Patient has had multiple hospital admissions the past 3 years for cellulitis. He is not diabetic. He denies any injury or trauma to the area. No history of DVT or PE. chronic low K., on HCTZ tho. pt improved with ancef. clinda x1 d. dc home with keflex dc hctz, add losartan. fu with PCP on Monday for BMP. dc time 35min. Physical Exam right leg redness better, right thigh new redness gone General: Alert, Oriented X3, Cooperative Heart: Regular rate, Normal S1, Normal S2 Lungs: Clear Abdomen: Normal bowel sounds, Soft Extremities: No clubbing, No cyanosis Skin: No breakdown Patient History: Unknown Problems: Disposition home CONDITION AT DISCHARGE: Improved Diet regular Scheduled Aspirin (Aspirin), 1 TAB PO HS, (Reported) Atorvastatin Calcium (Atorvastatin Calcium), 1 TAB PO HS, (Reported) Losartan Potassium (Cozaar), 100 MG PO QHS [place]-3 Fatty Acids (Fish Oil), 1,600 MG PO BID, (Reported) Omeprazole (Omeprazole), 0.5 CAP PO DAILY, (Reported) Potassium Chloride (Potassium Chloride), 40 MEQ PO BID, (Reported) Tamsulosin Hcl (Tamsulosin Hcl), 1 CAP PO DAILY, (Reported) Scheduled PRN Hydrocodone Bit/Acetaminophen (Hydrocodone-Apap 5-325 ), 1 TAB PO PRN Q4HRS PRN for MILD PAIN Sildenafil Citrate (Viagra), 20 MG PO PRN PRN for ED, (Reported) Miscellaneous Medications Multivitamin (Multi-Vitamin Daily), 1 EACH PO, (Reported) Discontinued Medications Amlodipine Besylate (Amlodipine Besylate), 10 MG PO HS, (Reported) Linezolid (Zyvox), 600 MG PO BID Valsartan/Hydrochlorothiazide (Diovan Hct 320-12.5 Mg Tab), 1 TAB PO HS, ( Reported) Follow Up pcp next monday KELY MONET MD Dec 09, 2016 15:33
== END 2016-12-09 16:45 | disposition home or self-care (01) | DRG 872 ==
LOC: ER 19:17 → 6 SOUTH 21:30
PROVIDERS: ADMIT Internal Medicine Hematology & Oncology; ATTEND Internal Medicine Hematology & Oncology
DX: A41.9 Sepsis, unspecified organism (principal); E66.01 Morbid (severe) obesity due to excess calories; I10 Essential (primary) hypertension; L03.115 Cellulitis of right lower limb; E78.00 Pure hypercholesterolemia, unspecified; E78.5 Hyperlipidemia, unspecified; E87.6 Hypokalemia; K21.9 Gastro-esophageal reflux disease without esophagitis; Z68.32 Body mass index [BMI] 32.0-32.9, adult; Z86.14 Personal history of Methicillin resistant Staphylococcus aureus infection; Z82.49 Family history of ischemic heart disease and other diseases of the circulatory system
CPT/HCPCS: 36415; 80048; 80053; 83605; 83735; 85007; 85025; 86140; 87040; 87641; 96361; 96374; J0690; J1650; J1885; J3370; J3480; J7030; J7040; 99285-25